=== PATIENT | male | born 1930 | race Caucasian/White ===

== ENCOUNTER → 2021-02-13 | Outpatient (CLI) | payer MEDICARE, OTHER ==
[2015-02-19 19:11] VITALS: BP 155/86
[~2021-02-13] MED LIST: ASPI325T8 PO; ASPI81TA50 PO; IPRA3AMP29 NEB; LOVA40TA2 PO; NIFE-11 PO; PRED-220 PO; TAMS0.4C97 PO
--- NOTE | 2021-02-13 17:15 | RAD ---
Examination: Left Lower Extremity Venous Doppler Ultrasound History: Left lower extremity swelling Comparison: None Procedure: Lara scale, color flow 2D and spectal waveform analysis images are obtained with and witho ut compression in the area of the common femoral vein, superficial femoral vein - femoral vein juncti on, main femoral vein (superficial femoral vein) and popliteal vein. Veins of the proximal calf are a lso imaged. Findings: There is normal duplex flow, color flow and compressibility of all visualized vein segments. No evide nce of deep venous thrombus is present. Impression: No evidence of DVT in the left lower extremity venous system. Electronically signed by: Spencer Reese MD (02/13/2021 5:12 PM) [id number]
== END ==
LOC: US 16:01
PROVIDERS: ATTEND Family Medicine
DX: I10 Essential (primary) hypertension (principal); R22.42 Localized swelling, mass and lump, left lower limb
CPT/HCPCS: 93971